=== PATIENT | male | born 1955 | race Caucasian/White ===

== ENCOUNTER 2020-07-09 07:23 | Day surgery (SDC) | payer MEDICARE, OTHER ==
[~2020-07-09] VITALS: Ht 180.3 cm; Wt 89.0 kg
[~2020-07-09 07:23] MED LIST: ASPI325 PO
== END 2020-07-09 08:59 | disposition home or self-care (01) ==
LOC: ORSCSDS 07:23
PROVIDERS: Ophthalmology
PROC: 08RK3JZ Replacement of Left Lens with Synthetic Substitute, Percutaneous Approach (ICD-10-PCS; principal; 2020-07-09 08:30)
DX: H25.12 Age-related nuclear cataract, left eye (principal); F17.210 Nicotine dependence, cigarettes, uncomplicated; Z79.82 Long term (current) use of aspirin
CPT/HCPCS: J2001; J2250; J3301; J7040; V2632

== ENCOUNTER 2020-09-24 08:22 | Day surgery (SDC) | payer MEDICARE, OTHER ==
[~2020-09-24] VITALS: Ht 180.3 cm; Wt 89.1 kg
== END 2020-09-24 10:12 | disposition home or self-care (01) ==
LOC: ORSCSDS 08:22
PROVIDERS: Ophthalmology
PROC: 08RJ3JZ Replacement of Right Lens with Synthetic Substitute, Percutaneous Approach (ICD-10-PCS; principal; 2020-09-24 09:30)
DX: H25.11 Age-related nuclear cataract, right eye (principal); J44.9 Chronic obstructive pulmonary disease, unspecified; Z79.82 Long term (current) use of aspirin; F17.210 Nicotine dependence, cigarettes, uncomplicated
CPT/HCPCS: J2001; J2250; J3301; J7040; V2632

== ENCOUNTER 2024-04-04 10:37 | Day surgery (SDC) | payer MEDICARE, OTHER ==
[~2024-04-04] VITALS: Ht 180.3 cm; Wt 82.0 kg
[~2024-04-04 10:37] MED LIST changes: +EPINEPhrine HCl 1 MG/ML 1ML Amp ONE
[2024-04-04] MEDS ORDERED: Lactated Ringer's 1,000 ML IV ONE ×2 (11:27→12:00)
[2024-04-04] MEDS ORDERED: Citric Acid/Sodium Citrate 30 ML BTL ONE (11:32)
[2024-04-04] MEDS ORDERED: Ipratropium/Albuterol SulF 2.5-0.5MG/3 ML Amp ONE (11:34)
[2024-04-04] MEDS ORDERED: propofoL 20 ML IV ONE (11:47)
[2024-04-04] MEDS ORDERED: Ketamine HCl 100 MG / ML 5ML Vial ONE (11:48)
[2024-04-04] MEDS ORDERED: Glycopyrrolate 0.2 MG/ML 5ML VIAL ONE (11:49)
[2024-04-04] MEDS ORDERED: NS XX ONE (12:10)
[2024-04-04] MEDS ORDERED: FentaNYL Citrate 50 MCG/ML 2 ML Injection ONE ×2 (12:14→13:13)
[2024-04-04] MEDS ORDERED: Ondansetron HCl 2 MG / ML 2ML Vial ONE (12:18)
[2024-04-04] MEDS ORDERED: Dexamethasone Sod Phos 10 MG/ML 1ML VIAL ONE (12:18)
--- NOTE | 2024-04-04 12:59 | NUR ---
04/04/24 1259 HEATHER RIVERA PT STATES PAIN 4/10 IS TOLERABLE. PLAN IS TO GIVE HIM A PO PAIN MED WHICH HE IS IN AGREEMENT
[2024-04-04] MEDS ORDERED: OxyCODONE HCL 5 MG TAB ONE (13:12)
--- NOTE | 2024-04-04 13:17 | NUR ---
04/04/[address] IN TO SPEAK WITH PT
[2024-04-04 13:45] VITALS: BP 138/77
== END 2024-04-04 14:25 | disposition home or self-care (01) ==
LOC: ORSCSDS 10:37
PROVIDERS: Otolaryngology
PROC: 07B10ZX Excision of Right Neck Lymphatic, Open Approach, Diagnostic (ICD-10-PCS; principal; 2024-04-04 12:00)
DX: C83.31 Diffuse large B-cell lymphoma, lymph nodes of head, face, and neck (principal); J44.9 Chronic obstructive pulmonary disease, unspecified; Z87.891 Personal history of nicotine dependence
CPT/HCPCS: 87071; 87075; 87076; 87102; 87205; 88184; 88185; 88305; 88323; 88341; 88342; 88360; 88365; A9270; J0171; J1100; J2405; J2704; J3010; J7120

== ENCOUNTER → 2024-05-30 | Outpatient (CLI) | payer MEDICARE, OTHER ==
[~2024-05-30] MED LIST changes: -EPINEPhrine HCl 1 MG/ML 1ML Amp ONE
[2024-05-30 09:50] LABS: BASOPHILS ABSOLUTE AUTO 0.07 K/mm3 (0.00-0.23); BASOPHILS PERCENT AUTO 1 % (0-2); EOSINOPHILS ABSOLUTE AUTO 0.05 K/mm3 (0.00-0.68); EOSINOPHILS PERCENT AUTO 1 % (0-6); Hematocrit 34.5 % (37.0-53.0); Hemoglobin 12.1 g/dL (13.5-17.5); IMMATURE GRAN ABSOLUTE AUTO 0.05 K/mm3 (0.00-0.10); IMMATURE GRAN PERCENT AUTO 1 % (0-1); LYMPHOCYTES ABSOLUTE AUTO 0.57 K/mm3 (0.84-5.20); LYMPHOCYTES PERCENT AUTO 6 % (21-46); MONOCYTES ABSOLUTE AUTO 1.19 K/mm3 (0.16-1.47); MONOCYTES PERCENT AUTO 13 % (4-13); Mean Corpuscular HGB 32.5 pg (26.0-34.0); Mean Corpuscular HGB Conc 35.1 g/dL (31.5-36.5); Mean Corpuscular Volume 93 fL (80-100); Mean Platelet Volume 8.9 fL (9.1-12.4); NEUTROPHILS ABSOLUTE AUTO 6.99 K/mm3 (1.96-9.15); NEUTROPHILS PERCENT AUTO 78 % (41-73); Platelet Count 352 K/mm3 (150-400); RDW Coefficient Variation 15.6 % (11.7-14.2); RDW Standard Deviation 51.9 fL (35.1-46.3); Red Blood Cell Count 3.72 M/mm3 (4.30-5.90); White Blood Cell Count 8.92 K/mm3 (4.00-11.30)
== END ==
LOC: LAB SHORT 09:41 → LAB 09:41
PROVIDERS: Registered Nurse Oncology
DX: C83.30 Diffuse large B-cell lymphoma, unspecified site (principal); D70.1 Agranulocytosis secondary to cancer chemotherapy
CPT/HCPCS: 85025

== ENCOUNTER 2024-07-09 15:02 | Day surgery (SDC) | payer MEDICARE, OTHER | END 2024-07-09 23:25 | disposition home or self-care (01) | LOC: RAD 15:02 | DX: C83.31 Diffuse large B-cell lymphoma, lymph nodes of head, face, and neck (principal) | CPT/HCPCS: 36598; Q9967 ==

== ENCOUNTER 2025-01-17 10:52 | Day surgery (SDC) | payer MEDICARE, OTHER ==
[~2025-01-17] VITALS: Ht 180.3 cm; Wt 78.5 kg
[2025-01-17] MEDS ORDERED: CeFAZolin Sodium 2,000 MG VIAL ONE (10:59)
[2025-01-17] MEDS ORDERED: propofoL 20 ML IV ONE (12:31)
[2025-01-17] MEDS ORDERED: Midazolam HCl 1MG / ML 2ML Vial ONE (13:11)
[2025-01-17] MEDS ORDERED: Bupivacaine 0.5% HCl 5 MG/ML 30MLVIAL INJ ONE ×2 (13:15)
[2025-01-17] MEDS ORDERED: Lidocaine HCl 1% 20 ML MDV INJ ONE ×2 (13:15)
[2025-01-17] MEDS ORDERED: Lactated Ringer's 1,000 ML IV ONE (13:23)
[2025-01-17 14:45] VITALS: BP 143/80
== END 2025-01-17 14:20 | disposition home or self-care (01) ==
LOC: ORSCSDS 10:52
PROVIDERS: Surgery
PROC: 0JPT0WZ Removal of Totally Implantable Vascular Access Device from Trunk Subcutaneous Tissue and Fascia, Open Approach (ICD-10-PCS; principal; 2025-01-17 12:15)
DX: Z45.2 Encounter for adjustment and management of vascular access device (principal); Z85.72 Personal history of non-Hodgkin lymphomas; F17.210 Nicotine dependence, cigarettes, uncomplicated
CPT/HCPCS: J0690; J2250; J2704; J7120